=== PATIENT | female | born 1985 | race Hispanic/Latino ===

== ENCOUNTER 2019-06-11 10:58 | Outpatient (CLI) | payer MEDICAID, SELFPAY ==
[2019-06-11 11:55] LABS: Add Urine Microscopic? NO; Appearance Urine Clear (Clear); Bilirubin Urine Negative (Negative); Blood Urine Negative (Negative); Color Urine Straw (Yellow); Glucose Urine UA Negative (Negative); Ketones Urine Negative (Negative); Leukocyte Esterase Ur Negative LEU/UL (NEGATIVE); Nitrate Urine Negative (Negative); Protein Urine Negative (Negative); Specific Grav Ur 1.012 (1.001-1.035); Urobilinogen Urine Negative mg/dL (<2.0)
[2019-06-11 12:23] LABS: Thyroid Stimulating Hormone 0.196 uIU/mL (0.465-4.680)
[2019-06-11 12:29] LABS: Hepatitis B Surface Antigen Negative (Negative); Rubella IgG Antibody 28.5 IU/ML; Vitamin D 25 Hydroxy 32.9 ng/mL
[2019-06-11 12:41] LABS: HIV 1/2 Ab P24 Ag Result Negative (Negative); Hepatitis C Virus Antibody Negative (Negative)
[2019-06-11 12:50] LABS: Basophils Percent Auto 0.4 % (0.2-1.2); Eosinophils Absolute Auto 0.1 K/mm3 (0-0.3); Eosinophils Percent Auto 1.3 % (0-4.4); Hematocrit 40.6 % (37.0-47.0); Hemoglobin 14.2 g/dL (12.0-15.0); Immature Granulocyte Absolute 0.06 K/mm3 (0.00-0.031); Immature Granulocyte Percent A 0.5 % (0-0.5); Lymphocytes Absolute Auto 2.02 K/mm3 (0.9-3.2); Lymphocytes Percent Auto 18.3 % (18.3-44.2); Mean Corpuscular Volume 85.8 fl (80-100); Mean Platelet Volume 10.5 fl (7.4-10.4); Monocytes Absolute Auto 0.5 K/mm3 (0.1-0.6); Monocytes Percent Auto 4.5 % (2.6-8.5); Neutrophils Absolute Auto 8.3 K/mm3 (1.3-6.7); Platelet Count Result 300 k/mm3 (150-375); Red Blood Count 4.73 M/mm3 (4.2-5.4); Red Cell Distribution Width 12.3 % (11.5-14.5)
[2019-06-12 07:19] LABS: Rapid Plasma Reagin Non-Reactive (NonReactive)
[2019-06-16 23:14] LABS: Hematocrit 43.8 % (35.0-45.0); Hemoglobin 14.3 g/dL (11.7-15.5); MCH 30.6 pg (27.0-33.0); MCV 93.8 FL (80.0-100.0); RDW 14.8 % (11.0-15.0); Red Blood Cell Count 4.67 Mill/uL (3.80-5.10)
== END 2019-06-11 10:59 | disposition home or self-care (01) ==
LOC: ANHLAB 11:00
PROVIDERS: PCP Student in an Organized Health Care Education/Training Program; Visit Provider Student in an Organized Health Care Education/Training Program
DX: Z32.00 Encounter for pregnancy test, result unknown (principal)
CPT/HCPCS: 36415; 81003; 81220; 81243; 82306; 83021; 84443; 85025; 86592; 86703; 86762; 86787; 86803; 86900; 86901; 87086; 87340; G0432

== ENCOUNTER 2019-06-15 13:07 | Outpatient (CLI) | payer MEDICAID, SELFPAY ==
[2019-06-15 14:07] LABS: Thyroid Stimulating Hormone 0.399 uIU/mL (0.465-4.680)
[2019-06-15 14:12] LABS: Free T4 Free Thyroxine 1.18 ng/mL (0.78-2.19)
== END 2019-06-15 13:08 | disposition home or self-care (01) ==
PROVIDERS: PCP Student in an Organized Health Care Education/Training Program; Visit Provider Student in an Organized Health Care Education/Training Program
DX: Z34.81 Encounter for supervision of other normal pregnancy, first trimester (principal); R79.89 Other specified abnormal findings of blood chemistry
CPT/HCPCS: 36415; 84439; 84443; 84480; 86850; 86900; 86901

== ENCOUNTER 2019-06-16 12:57 | Outpatient (CLI) | payer MEDICAID, SELFPAY ==
--- NOTE | ~2019-06-16 | US_ITS ---
EXAMINATION: US OB <= 14 weeks fetus DATE: 06/16/2019 13:29 INDICATION: Evaluate gestational dates. TECHNIQUE: Real-time transabdominal obstetric ultrasound. FINDINGS: No prior studies for comparison. The uterus measures 13.4 x 9.5 x 9.7 cm. There is an intrauterine gestational sac, with pole id entified. The crown rump length measures 5.15 cm, which correlates with a estimated gestational age of 11 weeks 6 days. heart tones are identified measuring 171 BPM. There is a 2 cm corpus lute al cyst of the left ovary. IMPRESSION: 1. SL IUP with an EGA of 11 weeks, 6 days (EDC by current ultrasound of 12/30/2019). Reviewed, dictated and finalized at location A. IMPRESSION: 1. SL IUP with an EGA of 11 weeks, 6 days (EDC by current ultrasound of 020).
== END 2019-06-16 12:58 | disposition home or self-care (01) ==
PROVIDERS: PCP Student in an Organized Health Care Education/Training Program; Visit Provider Student in an Organized Health Care Education/Training Program
DX: Z36.89 Encounter for other specified antenatal screening (principal); Z3A.11 11 weeks gestation of pregnancy
CPT/HCPCS: 76801

== ENCOUNTER 2019-08-30 17:41 | Observation (INO) | payer OTHER, SELFPAY ==
--- NOTE | 2019-08-30 17:41 | OBADM ---
This patient, Padmaja Moya, admitted to the OB room OB Post 116 for observation. Patient/family oriented to hospital policies and general routines including ID bracelet, bed and alarms, visiting hours, pain management, procedures, bathroom and other care routines, personal items, smoking policy, room service/diet, and visiting hours. Patient/Family are encouraged to report perceived risks to care and to ask questions if they do not understand what they are told or what they should do.
[2019-08-30 18:01] VITALS: BP 133/55; PULSE 57; TEMP 36.6
[2019-08-30 18:15] VITALS: BP 125/75; PULSE 98; BMI 31.8
--- NOTE | 2019-08-30 18:18 | PC.NURSE ---
Plan of care discussed with patient. Patient states understanding with plan of care and denies questions.
[2019-08-30 18:32] LABS: Add Urine Microscopic? YES; Appearance Urine Cloudy (Clear); Bacteria Urine Trace /hpf; Bilirubin Urine Negative (Negative); Blood Urine 1+ (Negative); Color Urine Yellow (Yellow); Glucose Urine UA Negative (Negative); Ketones Urine Negative (Negative); Leukocyte Esterase Ur 1+ LEU/UL (NEGATIVE); Mucus Urine Rare /lpf; Nitrate Urine Negative (Negative); Protein Urine Negative (Negative); Specific Grav Ur 1.015 (1.001-1.035); Squamous Epithelial Cell Urine Many /hpf (Few); Urobilinogen Urine Negative mg/dL (<2.0); WBC Urine 31-50 /hpf (0-3)
--- NOTE | 2019-08-30 18:43 | PC.NURSE ---
Dr. Fajardo notified of UA results. No contractions noted via toco monitoring. FHT 155. VSS. Discharge orders received.
[2019-08-30] MEDS: NITROFURANTOIN MONOHYD MACROCR 100 MG CAP PO (18:59)
--- NOTE | 2019-08-30 19:00 | PC.NURSE ---
Patient states understanding of discharge instruction. labor precautions reviewed with patient prior to discharge. Patient left ambulating at 1900.
--- NOTE | 2019-08-30 19:03 | PC.NURSE ---
Patient discharge instructions reviewed. Patient educated on Macrobid prescription prior to discharge. 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
--- NOTE | 2019-09-24 12:20 | PM.OBTRLD ---
OB - Triage/Final Diagnosis Evaluation Laboratory results: Laboratory Tests 08/30/19 18:18 Urine Color Yellow Urine Appearance Cloudy H Urine pH 7.0 Ur Specific [place] 1.015 Urine Protein Negative Urine Glucose (UA) Negative Urine Ketones Negative Ur Blood (Man) 1+ H Urine Nitrate Negative Urine Bilirubin Negative Urine Urobilinogen Negative Ur Leukocyte Esterase 1+ H Urine RBC 3-5 H Urine WBC 31-50 H Ur Squamous Epith Cells Many H Urine Bacteria Trace Urine Mucus Rare Final Diagnosis (1) UTI (urinary tract infection) during : Code(s): O23.40 - Unspecified infection of urinary tract in , unspecified trimester Status: Acute
--- NOTE | 2019-09-28 04:06 | PM.OBTRLD ---
OB - Triage/Final Diagnosis Evaluation Laboratory results: Laboratory Tests 08/30/19 18:18 Urine Color Yellow Urine Appearance Cloudy H Urine pH 7.0 Ur Specific [place] 1.015 Urine Protein Negative Urine Glucose (UA) Negative Urine Ketones Negative Ur Blood (Man) 1+ H Urine Nitrate Negative Urine Bilirubin Negative Urine Urobilinogen Negative Ur Leukocyte Esterase 1+ H Urine RBC 3-5 H Urine WBC 31-50 H Ur Squamous Epith Cells Many H Urine Bacteria Trace Urine Mucus Rare Final Diagnosis (1) UTI (urinary tract infection) during : Code(s): O23.40 - Unspecified infection of urinary tract in , unspecified trimester Status: Acute
== END 2019-08-30 19:00 | disposition home or self-care (01) ==
PROVIDERS: Admitting Provider Student in an Organized Health Care Education/Training Program; Visit Provider Obstetrics & Gynecology
DX: O23.40 Unspecified infection of urinary tract in pregnancy, unspecified trimester (principal); Z3A.00 Weeks of gestation of pregnancy not specified
CPT/HCPCS: 81001; 87077; 87086; 87088; 87186; A9270; G0378; G0379

== ENCOUNTER 2019-09-23 10:18 | Outpatient (CLI) | payer OTHER, SELFPAY ==
[2019-09-23 11:45] LABS: Basophils Percent Auto 0.3 % (0.2-1.2); Eosinophils Absolute Auto 0.2 K/mm3 (0-0.3); Eosinophils Percent Auto 1.5 % (0-4.4); Hematocrit 35.6 % (37.0-47.0); Hemoglobin 12.3 g/dL (12.0-15.0); Immature Granulocyte Absolute 0.15 K/mm3 (0.00-0.031); Immature Granulocyte Percent A 1.3 % (0-0.5); Lymphocytes Absolute Auto 1.62 K/mm3 (0.9-3.2); Lymphocytes Percent Auto 13.9 % (18.3-44.2); Mean Corpuscular HGB Conc 34.6 g/dl (32-36); Mean Corpuscular Hemoglobin 31.5 pg (26-34); Mean Platelet Volume 9.8 fl (7.4-10.4); Monocytes Absolute Auto 0.7 K/mm3 (0.1-0.6); Monocytes Percent Auto 6.1 % (2.6-8.5); Neutrophils Absolute Auto 8.9 K/mm3 (1.3-6.7); Neutrophils Percent Auto 76.9 % (45.5-73.1); Platelet Count Result 256 k/mm3 (150-375); Red Blood Count 3.91 M/mm3 (4.2-5.4); Red Cell Distribution Width 13.4 % (11.5-14.5); White Blood Count 11.6 K/mm3 (4.5-10.0)
[2019-09-23 11:54] LABS: Glucose 1 Hour PP 50gm Dose 101 mg/dL
== END 2019-09-23 10:19 | disposition home or self-care (01) ==
PROVIDERS: Visit Provider Student in an Organized Health Care Education/Training Program
DX: Z34.82 Encounter for supervision of other normal pregnancy, second trimester (principal); Z3A.00 Weeks of gestation of pregnancy not specified
CPT/HCPCS: 36415; 82947; 85025

== ENCOUNTER 2019-11-12 11:16 | Outpatient (CLI) | payer OTHER, SELFPAY ==
[2019-11-12 11:49] LABS: Basophils Absolute Auto 0.1 K/mm3 (0.0-0.1); Basophils Percent Auto 0.5 % (0.2-1.2); Eosinophils Absolute Auto 0.2 K/mm3 (0-0.3); Eosinophils Percent Auto 1.7 % (0-4.4); Hematocrit 34.4 % (37.0-47.0); Hemoglobin 11.9 g/dL (12.0-15.0); Immature Granulocyte Absolute 0.25 K/mm3 (0.00-0.031); Immature Granulocyte Percent A 1.9 % (0-0.5); Lymphocytes Absolute Auto 1.66 K/mm3 (0.9-3.2); Lymphocytes Percent Auto 12.7 % (18.3-44.2); Mean Corpuscular HGB Conc 34.6 g/dl (32-36); Mean Corpuscular Hemoglobin 31.1 pg (26-34); Mean Corpuscular Volume 89.8 fl (80-100); Mean Platelet Volume 9.8 fl (7.4-10.4); Monocytes Absolute Auto 0.8 K/mm3 (0.1-0.6); Monocytes Percent Auto 6.4 % (2.6-8.5); Neutrophils Percent Auto 76.8 % (45.5-73.1); Platelet Count Result 266 k/mm3 (150-375); Red Blood Count 3.83 M/mm3 (4.2-5.4); Red Cell Distribution Width 12.6 % (11.5-14.5)
[2019-11-12 12:38] LABS: HIV 1/2 Ab P24 Ag Result Negative (Negative)
[2019-11-13 09:16] LABS: Rapid Plasma Reagin Non-Reactive (NonReactive)
== END 2019-11-12 11:17 | disposition home or self-care (01) ==
PROVIDERS: PCP Student in an Organized Health Care Education/Training Program; Visit Provider Student in an Organized Health Care Education/Training Program
DX: Z34.83 Encounter for supervision of other normal pregnancy, third trimester (principal); Z3A.00 Weeks of gestation of pregnancy not specified
CPT/HCPCS: 36415; 85025; 86592; 86703; G0432

== ENCOUNTER 2019-12-18 11:37 | Inpatient (IN) | payer OTHER, SELFPAY ==
[2019-12-18] VITALS (42 sets, daily range): BP systolic 107–141; BP diastolic 50–92; PULSE 49–131; RESP 16–19; TEMP 36.3–36.7; O2SAT 95–100; BMI 35.5
--- NOTE | 2019-12-18 10:07 | PM.IMHP ---
H&P: HPI History of Present Illness Date/Time: 12/18/19 10:07 Chief complaint: Prior / Desires Sterilization Narrative: Padmaja Bates is a 34 year old female currently 39 weeks gestation. Last menstrual period March 20, 2019. Estimated due date December 25, 2019. Patient is dated by her last menstrual period consistent with an ultrasound on June 16, 2019 at 11 weeks gestation. Patient presents for scheduled repeat section and permanent sterilization with a bilateral tubal ligation. The patient has a history of previous section x3. Patient reports feeling well today. She denies any vaginal bleeding, leakage of fluid, or contractions. Reports good movement. Review of Systems Review of Systems: All systems reviewed & are unremarkable except as noted in HPI and below Constitutional: Constitutional: Reports as per HPI, Reports no additional constitutional complaints, Denies chills, Denies fever(s), Denies headache(s) and Denies night sweats Eyes: Eyes: Reports as per HPI and Reports no additional eye complaints ENT: Reports system reviewed and no additional complaints, except as documented, Reports as per HPI, Reports Normal hearing present and Denies headache(s) Cardiovascular: Cardiovascular: Reports as per HPI, Reports no additional cardiovascular complaints, Denies chest pain and Denies dyspnea Respiratory: Respiratory: Reports as per HPI, Reports no additional respiratory complaints, Denies cough and Denies dyspnea Gastrointestinal: Gastrointestinal: Reports as per HPI, Reports no additional gastrointestinal complaints, Denies abdominal pain, Denies change in bowel habits, Denies change in stool character, Denies nausea and Denies vomiting Genitourinary: Genitourinary: Reports no additional female genitourinary complaints, Reports as per HPI, Denies abnormal vaginal bleeding, Denies genital lesions, Denies hot flashes, Denies dyspareunia, Denies pelvic pain, Denies sexual dysfunction, Denies urinary incontinence, Denies vaginal discharge, Denies vaginal dryness and Denies vaginal odor Musculoskeletal: Musculoskeletal: Reports no additional musculoskeletal complaints and Reports as per HPI Integumentary/Breasts: Skin/Breast: Reports system reviewed and no additional complaints, except as docu, Reports as per HPI, Denies breast pain and Denies nipple discharge Neurologic: Reports system reviewed and no additional complaints, except as documented, Reports as per HPI, Reports Normal hearing present and Denies headache(s) Psychiatric: Psychiatric: Reports no additional psychiatric complaints, Reports as per HPI, Denies anxiety and Denies depression Endocrine: Endocrine: Reports no additional endocrine complaints and Reports as per HPI Hematologic/Lymphatic: Hematologic/Lymphatic: Reports no additional hematologic/lymphatic complaints and Reports as per HPI Allergic/Immunologic: Allergic/Immunologic: Reports no additional allergic/immunologic complaints and Reports as per HPI PMFSH Past Medical History Medical History (Updated 12/18/19 @ 10:38 by Khloe Yeboah MD) Brain tumor Cutaneous endometriosis Surgical History Surgical History (Updated 12/18/19 @ 10:38 by Khloe Yeboah MD) H/O exploratory laparotomy excision of abdominal incisional endometrioma History of brain surgery Previous section x 3 Social History Social History Smoking status: Never smoker Second hand tobacco smoke exposure: No Alcohol intake: never Meds Home Medications and Allergies Home Medications Medication Instructions Recorded Confirmed Type vits 75-iron 28 mg-folic 1 pkg PO DAILY 05/14/19 08/30/19 History acid 800 mcg-omega-3 oral combo pack [id number] 1 cap PO Q8H PRN #10 cap 11/12/19 11/12/19 Rx 50 mg-300 mg-40 mg capsule Allergies Allergy/AdvReac Type Severity R
[2019-12-18] MEDS: LACTATED RINGERS 1,000 ML 125 ML IV CONT (12:49)
[2019-12-18 12:50] LABS: Basophils Absolute Auto 0.1 K/mm3 (0.0-0.1); Basophils Percent Auto 0.5 % (0.2-1.2); Eosinophils Absolute Auto 0.1 K/mm3 (0-0.3); Eosinophils Percent Auto 1.3 % (0-4.4); Hematocrit 34.7 % (37.0-47.0); Hemoglobin 12.1 g/dL (12.0-15.0); Immature Granulocyte Absolute 0.08 K/mm3 (0.00-0.031); Immature Granulocyte Percent A 0.8 % (0-0.5); Lymphocytes Absolute Auto 1.52 K/mm3 (0.9-3.2); Lymphocytes Percent Auto 15.9 % (18.3-44.2); Mean Corpuscular HGB Conc 34.9 g/dl (32-36); Mean Corpuscular Hemoglobin 30.7 pg (26-34); Mean Corpuscular Volume 88.1 fl (80-100); Mean Platelet Volume 9.5 fl (7.4-10.4); Monocytes Absolute Auto 0.5 K/mm3 (0.1-0.6); Monocytes Percent Auto 5.4 % (2.6-8.5); Neutrophils Absolute Auto 7.3 K/mm3 (1.3-6.7); Neutrophils Percent Auto 76.1 % (45.5-73.1); Platelet Count Result 271 k/mm3 (150-375); Red Blood Count 3.94 M/mm3 (4.2-5.4); Red Cell Distribution Width 12.9 % (11.5-14.5); White Blood Count 9.6 K/mm3 (4.5-10.0)
--- NOTE | 2019-12-18 13:12 | WPDHPUPDATE1 ---
History and Physical Update Update Date/Time: 12/18/19 13:12 History and Physical has been reviewed, including an updated exam of the patient. There are NO changes in the patient's condition. Risks, benefits, and alternatives have been discussed and questions answered. Patient agrees to proceed with procedure.
--- NOTE | 2019-12-18 13:24 | WPDANESEPPF ---
Anes - Initial Pre Proc Eval Procedure: Operation Date: 12/18/19 13:30 Proposed Procedures p Repeat Section, Bilateral Tubal Ligation - Khloe Yeboah MD Date/Time: 12/18/19 13:24 Surgeon: Khloe Yeboah MD Pre Op Diagnosis: C Sections Patient Data Age: 34 Gender: F Height: 5 ft 4 in Weight: 94 kg Last Vital Signs Pulse 72 12/18/19 12:31 BP 107/68 12/18/19 12:31 Allergies Allergy/AdvReac Type Severity Reaction Status Date / Time ibuprofen Allergy Unknown Swelling Verified 12/15/19 09:07 Home Medications Medication Instructions Recorded Confirmed Type vits 75-iron 28 mg-folic 1 pkg PO DAILY 05/14/19 08/30/19 History acid 800 mcg-omega-3 oral combo pack [id number] 1 cap PO Q8H PRN #10 cap 11/12/19 11/12/19 Rx 50 mg-300 mg-40 mg capsule Laboratory Tests 12/18/19 12/18/19 12:41 12:41 WBC 9.6 K/mm3 K/mm3 (4.5-10.0) RBC 3.94 M/mm3 L M/mm3 (4.2-5.4) Hgb 12.1 g/dL g/dL (12.0-15.0) Hct 34.7 % L % (37.0-47.0) MCV 88.1 fl fl (80-100) MCH 30.7 pg pg (26-34) MCHC 34.9 g/dl g/dl (32-36) RDW 12.9 % % (11.5-14.5) Plt Count 271 k/mm3 k/mm3 (150-375) MPV 9.5 fl fl (7.4-10.4) Immature Gran % (Auto) 0.8 % H % (0-0.5) Neut % (Auto) 76.1 % H % (45.5-73.1) Lymph % (Auto) 15.9 % L % (18.3-44.2) [place] % (Auto) 5.4 % % (2.6-8.5) Eos % (Auto) 1.3 % % (0-4.4) Baso % (Auto) 0.5 % % (0.2-1.2) Lymph # (Auto) 1.52 K/mm3 K/mm3 (0.9-3.2) [place] # (Auto) 0.5 K/mm3 K/mm3 (0.1-0.6) Eos # (Auto) 0.1 K/mm3 K/mm3 (0-0.3) Baso # (Auto) 0.1 K/mm3 K/mm3 (0.0-0.1) Abs Immat Gran (auto) 0.08 K/mm3 H K/mm3 (0.00-0.031) Absolute Neuts (auto) 7.3 K/mm3 H K/mm3 (1.3-6.7) Absolute Nucleated RBC 0.0 K/mm3 K/mm3 (0.0-0.012) Nucleated RBC % 0.0 % % (0.0-0.2) RPR Pending Patient hx anesthesia problems: none Family hx anesthesia problems: none PMFSH Past Medical History Medical History Brain tumor Cutaneous endometriosis Surgical History Surgical History H/O exploratory laparotomy excision of abdominal incisional endometrioma History of brain surgery Previous section x 3 Social History Social History Smoking status: Never smoker Second hand tobacco smoke exposure: No Alcohol intake: never Substance use: never Gender identity (if verbalized by the patient): Female Spiritual care concerns: No Anes - Eval Final PreProcedure Day of Procedure 12/18/19 13:24 Patient weight: obese Heart: regular rate and rhythm Lungs: clear to auscultation Airway: Mallampati scale class II Neurological: alert and oriented Last oral intake: >/= 8 hours ASA classification: III Emergent: no Anesthetic plan: proceed Anesthesia type and monitoring: regional spinal and standard monitoring Informed Consent: The patient's anesthetic plan and its attendant risks and benefits were discussed with the patient/family/POA. Questions were solicited and answers provided to the satisfaction of the patient/family/POA.
--- NOTE | 2019-12-18 14:15 | LDADM ---
This patient, Padmaja Bates, was admitted to OB Post 111 on 12/18/19 at 11:37. Plans for scheduled section, pain management and were discussed with patient. Patient/family oriented to hospital policies and general routines including ID bracelet, bed and alarms, visiting hours, pain management, procedures, bathroom and other care routines, personal items, smoking policy, room service/diet and guest tray routines, security routines, and visiting hours. Patient/Family are encouraged to report perceived risks to care and to ask questions if they do not understand what they are told or what they should do. See OBIX for further documentation.
--- NOTE | 2019-12-18 16:17 | PM.PROC ---
Procedure Note - Detailed Date of procedure: 12/18/19 Pre-op diagnosis: C Sections Intrauterine at 39 weeks gestation Previous section x 3 Multiparity, desires permanent sterilization Post-op diagnosis: same Procedure performed: Repeat low transverse section via Pfannenstiel Bilateral tubal ligation via modified Espy method Description of procedure: The patient was taken to the operating room, where she self-transferred to the operating room table. Spinal anesthesia was administered and found to be adequate. The patient was placed in dorsal supine position with a leftward tilt. She was prepped and draped in the usual sterile fashion. Spinal anesthesia was tested and found to be adequate. A Pfannenstiel skin incision was made with a scalpel and carried through to the underlying layer of fascia with the Bovie. The fascia was incised in the midline and the incision was extended laterally with the use of forceps and Epterson scissors. The inferior aspect of the fascial incision was grasped with Lynsey clamps, elevated, and the underlying rectus muscle were dissected off with Peterson scissors. Attention was then turned to the superior aspect of the fascial incision, which in a similar manner, was grasped with Lynsey clamps, elevated, and the underlying rectus muscles were also dissected off with Peterson scissors. The rectus muscles were in the midline and the peritoneal cavity was entered bluntly. This incision was extended superiorly and inferiorly with good visualization of the bladder and care was taken to avoid blood vessels. A bladder blade was inserted. The vesicouterine peritoneum was identified and incised sharply with Metzenbaum scissors. This incision was extended laterally with Metzenbaum scissors and a bladder flap was created digitally. The bladder blade was replaced. The lower uterine segment was noted to be thin. Two Allis clamps were used to elevate the lower uterine segment. A low-transverse uterine incision was made with a scalpel. This incision was extended laterally with bandage scissors. Amniotomy was performed. Clear amniotic fluid was noted. The infant's head was grasped and gently guided to the level of the uterine incision. The 's head was delivered easily and atraumatically without difficulty followed by the neck, shoulders, and rest of body with gentle fundal pressure. The 's nose and mouth were suctioned bulb suction. The was crying spontaneously. The cord was clamped and cut and the infant was handed off to awaiting nursing staff. A segment of cord was collected for cord gases. Cord blood was also collected. The placenta was then delivered manually with gentle uterine massage. Uterus was exteriorized and cleared of all clots and debris. The uterine incision was reapproximated with 0 Vicryl in a running, locked fashion. A second imbricating layer using 0 Monocryl performed. A serosal abrasion near the right angle was noted to be oozing. Two figure of eight sutures using 0 Monocryl was used to obtain hemostasis. Excellent hemostasis was noted. On inspection, the uterus, ovaries, and fallopian tubes appeared to be normal bilaterally. Attention was then turned to the right fallopian tube, which was identified and followed through to the fimbriated end. The tube was grasped with a [place] clamp and elevated. With the use of Bovie, a window was created in the mesosalpinx just beneath the tube. Four free ties using 2-0 plain suture were used to create an intervening segment of tube. Two sutures were placed on either side of the intervening segment. An approximate 3cm segment of intervening tube was then excised with Metzenbaum scissors. The excised portion of the tube was handed off the field to be sent to pathology for analysis. The tubal stumps were cauterized and excellent hemostasis was noted. In a similar manner, attention was turned to the left fallopian tube, which was identified and followed through to the fimbr
[2019-12-18] MEDS: OXYTOCIN 30 UNITS/NS 500 ML 30 UNITS/500 ML BAG 125 UNITS IV CONT (16:23)
[2019-12-18] MEDS: MORPHINE SULFATE (*CRX) 2 MG/ML INJ 3 MG IV PUSH (16:36)
[2019-12-18] MEDS: ONDANSETRON INJ 4 MG/2 ML VIAL IV PUSH ×2 (16:39→17:56)
--- NOTE | 2019-12-18 16:49 | SUR.PHASEI ---
1645-Lights dimmed and pt dozing off and on with her and at her bedside.
--- NOTE | 2019-12-18 18:56 | PC.NURSE ---
Pt vomited while preparing to transport to second floor OB. Dr. Menchaca notified. Jimmy ordered.
[2019-12-18] MEDS: diphenhydrAMINE HCl INJ 50 MG/ML VIAL 12.5 MG IV PUSH (19:06)
--- NOTE | 2019-12-18 19:15 | PC.NURSE ---
Patient transferred to post room #285 via stretcher. Support person present. Oriented to unit, room, information board, rooming in, admission packet and security measures. Patient verbalizes understanding.
[2019-12-18] MEDS: KCL 20 MEQ/D5/0.45% SOD CHL 1,000 ML 125 ML IV CONT (21:18)
[2019-12-18] MEDS: HYDROcodone/acetaminophen (*CRX) 5-325 MG TABLET 1 TAB PO (23:08)
[2019-12-19] MEDS: HYDROcodone/acetaminophen (*CRX) 10-325 MG TABLET 1 TAB PO ×6 (02:59→23:12)
[2019-12-19 03:00] VITALS: BP 125/76; PULSE 98; RESP 16; TEMP 36.3; O2SAT 96
[2019-12-19 04:56] LABS: Basophils Percent Auto 0.2 % (0.2-1.2); Eosinophils Absolute Auto 0.1 K/mm3 (0-0.3); Eosinophils Percent Auto 0.5 % (0-4.4); Hematocrit 36.1 % (37.0-47.0); Hemoglobin 12.2 g/dL (12.0-15.0); Immature Granulocyte Absolute 0.06 K/mm3 (0.00-0.031); Immature Granulocyte Percent A 0.5 % (0-0.5); Lymphocytes Absolute Auto 1.43 K/mm3 (0.9-3.2); Lymphocytes Percent Auto 11.5 % (18.3-44.2); Mean Corpuscular HGB Conc 33.8 g/dl (32-36); Mean Corpuscular Hemoglobin 30.5 pg (26-34); Mean Corpuscular Volume 90.3 fl (80-100); Mean Platelet Volume 9.9 fl (7.4-10.4); Monocytes Absolute Auto 0.9 K/mm3 (0.1-0.6); Monocytes Percent Auto 7.1 % (2.6-8.5); Neutrophils Percent Auto 80.2 % (45.5-73.1); Platelet Count Result 271 k/mm3 (150-375); Red Cell Distribution Width 12.9 % (11.5-14.5); White Blood Count 12.4 K/mm3 (4.5-10.0)
[2019-12-19] MEDS: MULTIVIT/MIN/PREN/FOL AC/IRON TABLET 1 TAB PO (08:24)
[2019-12-19 08:25] VITALS: BP 115/65; PULSE 96; RESP 18; TEMP 36.9
[2019-12-19] MEDS: DOCUSATE SODIUM 100 MG CAPSULE PO ×2 (08:25→16:50)
--- NOTE | 2019-12-19 11:34 | P.PNOB_ITS ---
OB - PN: Subj Subjective Date/time seen: 12/19/19 11:34 Patient comments: no complaints, pain well controlled, incisional pain, tolerating diet, flatus present and other (Lochia similar to menses) baby status: doing well OB - PN: Obj Data Labs CBC & Chem 7: 12/19/19 03:15 Labs: Laboratory Results - last 24 hr 12/18/19 12/18/19 12/19/19 12:41 12:41 03:15 WBC 9.6 12.4 H RBC 3.94 L 4.00 L Hgb 12.1 12.2 Hct 34.7 L 36.1 L MCV 88.1 90.3 MCH 30.7 30.5 MCHC 34.9 33.8 RDW 12.9 12.9 Plt Count 271 271 MPV 9.5 9.9 Immature Gran % (Auto) 0.8 H 0.5 Neut % (Auto) 76.1 H 80.2 H Lymph % (Auto) 15.9 L 11.5 L [place] % (Auto) 5.4 7.1 Eos % (Auto) 1.3 0.5 Baso % (Auto) 0.5 0.2 Lymph # (Auto) 1.52 1.43 [place] # (Auto) 0.5 0.9 H Eos # (Auto) 0.1 0.1 Baso # (Auto) 0.1 0.0 Abs Immat Gran (auto) 0.08 H 0.06 H Absolute Neuts (auto) 7.3 H 10.0 H Absolute Nucleated RBC 0.0 0.0 Nucleated RBC % 0.0 0.0 Blood Type O Positive Antibody Screen Negative OB - PN A/P Plan day: 1 (s/p C section, doing well) Plan: routine care Time Spent With Patient Time: Total time spent is greater than 50% in coordination of care (as documented) at patient's floor/unit and/or counseling patient: Exam Const: General: no acute distress Resp: Auscultation: clear to auscultation bilaterally Cardio: Rate: regular rate Rhythm: regular rhythm GI: Inspection: non-distended, incision (Intact without erythema, drainage, or induration) and other (Fundus firm and nontender at umbilicus) GI Palp: Yes abdominal tenderness (appropriate ) and Yes Soft to palpation Extrem: General: no edema
[2019-12-19 13:30] VITALS: BP 125/75; PULSE 81; RESP 18
--- NOTE | 2019-12-19 13:50 | WPDANLDPN2 ---
Anes-Prog Note L&D Date/Time: 12/19/19 13:50 Comfortable throughout: section Neuraxial method: spinal Epidural/Spinal procedure site: clean & non-tender Neuro status: Neuro function grossly intact. Cardiovascular status: normal Respiratory status: normal Airway patency: baseline Mental status: baseline Post-Op hydration status: normal Vital Signs: Last Vital Signs Temp 36.9 C 12/19/19 08:25 Pulse 96 12/19/19 08:25 Resp 18 12/19/19 08:25 BP 115/65 12/19/19 08:25 Pulse Ox 96 12/19/19 03:00 Pain score (VAS): 210 I/O: Intake & Output 12/18/19 12/19/19 12/19/19 23:59 07:59 15:59 Intake Total 1500 1600 1000 Output Total 683 1250 1400 Balance 817 350 -400 Post-procedural complaints: none Patient feedback: Patient satisfied with anesthetic care.
--- NOTE | 2019-12-19 13:51 | WPDANLDNPN2 ---
Anes-Prog Note L&D-Neuraxial Date/Time: 12/19/19 13:51 Neuraxial medications: intrathecal PF morphine Opiod-related complaints: none Patient feedback: Patient satisfied with post-operative pain management.
[2019-12-19 19:10] VITALS: BP 114/66; PULSE 88; RESP 16; TEMP 37.1; O2SAT 98
--- NOTE | 2019-12-19 19:10 | PC.NURSE ---
Patient viewed the discharge video Mother & Baby Care, The First Two Weeks . Patient was given the opportunity and encouraged to ask questions. Patient verbalized understanding of information shared and has been given the mother/baby guide for home reference.
[2019-12-20] MEDS: HYDROcodone/acetaminophen (*CRX) 10-325 MG TABLET 1 TAB PO ×2 (02:42→08:17)
[2019-12-20 08:15] VITALS: BP 112/67; PULSE 73; RESP 18; TEMP 36.6
[2019-12-20] MEDS: MULTIVIT/MIN/PREN/FOL AC/IRON TABLET 1 TAB PO (08:17)
[2019-12-20] MEDS: DOCUSATE SODIUM 100 MG CAPSULE PO (08:17)
[2019-12-20] MEDS: TETANUS,DIPHTHERIA,AC PERTUSSIS ADULT (0.5 ML) BOOSTRIX IM (08:18)
--- NOTE | 2019-12-20 08:21 | PM.OBPNVD ---
OB - PN: Subj Subjective Date/time seen: 12/20/19 08:21 Patient comments: no complaints, pain well controlled, tolerating diet, flatus present and other (Ambulating and voiding without problems. Lochia similar to menses) baby status: doing well OB - PN: Obj Data Labs CBC & Chem 7: 12/19/19 03:15 OB - PN A/P Plan day: 2 (s/p C section, doing well) Plan: routine care and discharge home (Follow up in 2 weeks) Time Spent With Patient Time: Total time spent is greater than 50% in coordination of care (as documented) at patient's floor/unit and/or counseling patient: Time with patient: less than 15 minutes Exam Const: General: no acute distress Resp: Auscultation: clear to auscultation bilaterally Cardio: Rate: regular rate Rhythm: regular rhythm GI: Inspection: non-distended, incision (Intact without erythema, drainage, or induration) and other (Fundus firm and nontender below umbilicus) GI Palp: Yes abdominal tenderness (appropriate) and Yes Soft to palpation Extrem: General: no edema
[2019-12-21 10:22] VITALS: BP 135/81; PULSE 64; RESP 20; TEMP 36.9; O2SAT 100
[2019-12-21 12:33] LABS: Rapid Plasma Reagin Non-Reactive (NonReactive)
--- NOTE | 2020-01-22 11:56 | PM.OBDSVD ---
DS: Admitting Diagnosis Admitting Diagnosis Admitting Diagnosis: C Sections DS: Discharge Diagnosis Discharge Diagnosis (1) Previous section: Code(s): Z98.891 - History of uterine scar from previous surgery Status: Acute OB - DS: Summary OB Procedures : None OB Procedures Intrapartum: and Tubal ligation OB Procedures: : None Peripartum Data Delivery Method: Section Procedures: Procedures Operation Date: 12/18/19 13:30 Actual Procedures Side Surgeon p Repeat Section, Bilateral Tubal Ligation Khloe Yeboah MD complications: none Status at Discharge Functional status at discharge: independent ambulation Overall status at discharge: patient is progressing back to baseline Time Spent with Patient Time attestation: Total time spent providing and/or coordinating discharge services: Time spent: Less than 30 minutes DS: Data Data Completed and Pending Completed studies during hospitalization: Pending at discharge 12/18/19 15:31 Surgical [PTH] Routine Discharge Plan Discharge Attending physician on discharge: Khloe Yeboah Consulting providers: David Rossi Discharging Clinician: Ayaka Spear Patient Disposition: Home, Self-Care Activity: may shower and pelvic rest Diet: regular Wound Care Instructions: incision open to air Discharge Instructions: Education: Mom and Baby Guide and Preeclampsia Handout Given to: Mother Follow-Up: Call your delivering provider's office for an appointment to be seen in: 2 Weeks [facility]. Appointment Date/Time: December 21, 2019 at 10:00 am What to expect at your follow-up visit: Physical Assessment Call [phone] if you are unable to keep your appointment time. BREAST CARE: * Wear a snug supportive bra. * For engorgement discomfort: Breast Feeding: * Apply warm moist washcloths * Express milk as needed to relieve engorgement * Wear loose clothing Bottle Feeding: * May apply ice packs * For sore nipples: * Identify correct latch-on * Apply warm moist washcloths before and after nursing * Air dry nipples after nursing * May apply Lansinoh cream to nipples ABDOMINAL INCISION: (if applicable) * Allow incision to air dry * Do NOT use lotions for powders on your incision * When showering, allow soap and water to run over the incision, but do not wash incision EPISIOTOMY/PERINEAL CARE: * Until bleeding stops, use your cheri bottle after urinating * Change your pad frequently throughout the day * No tub baths until seen by your physician - You may shower ACTIVITY: * Rest as much as possible. * Do not exercise or lift anything heavier than your baby (such as laundry or other children.) * Avoid stairs or driving as much as possible. * Do not put anything into the vagina. No douching, tampons, or sexual activity until seen by physician. NOTIFY PHYSICIAN IF YOU HAVE ANY QUESTIONS OR IF ANY OF THE FOLLOWING SYMPTOMS OCCUR: * If your incision becomes red, swollen, or more painful than what you have experienced in the hospital. * If your vaginal bleeding becomes foul smelling. * If your vaginal bleeding becomes more heavy than a period or if your bleeding changes from pink to bright red. However, you may pass an occasional walnut-sized clot once or twice for the first week . * If you experience a sharp, shooting pain in you calves. * If you discover a hard, reddened area on your breast or if you experience flu-like symptoms. DIET: * Eat regular, well-balanced meals. * Drink plenty of fluids daily. If , drink to thirst. Stand Alone Forms: General Discharge Information Follow-up/Referrals: Khloe Yeboah MD [Physician] - 2 Weeks Discharg
== END 2019-12-20 13:43 | disposition home or self-care (01) | DRG 540 ==
LOC: ANHOB2 12-20 10:12 → ANHOBPP 12-23 06:29
PROVIDERS: Admitting Provider Student in an Organized Health Care Education/Training Program; Visit Provider Obstetrics & Gynecology
PROC: 10D00Z1 Extraction of Products of Conception, Low, Open Approach (ICD-10-PCS; CPT 59514; principal; 2019-12-18 13:30)
DX: O34.211 Maternal care for low transverse scar from previous cesarean delivery (principal); Z37.0 Single live birth; Z3A.39 39 weeks gestation of pregnancy; Z23 Encounter for immunization; O99.214 Obesity complicating childbirth; E66.9 Obesity, unspecified; Z30.2 Encounter for sterilization; N80.8 Other endometriosis; O99.892 Other specified diseases and conditions complicating childbirth
CPT/HCPCS: 36415; 85025; 86592; 86850; 86900; 86901; 88302; 90471; 90653; 90715; A9270; G0008; J0131; J1200; J2270; J2274; J2405; J2590; J3480; J7120

== ENCOUNTER 2022-06-28 00:25 | Day surgery (SDC) | payer OTHER, SELFPAY ==
[2022-06-20 16:36] VITALS: BMI 25.0
--- NOTE | 2022-06-20 16:54 | PC.NURSE ---
Report to the Outpatient Waiting Room, entrance under the green pavilion located off [facility], at 0600 on 06-28-22. Planned Procedure Time: 0730. Time changes happen often and if your time is changed the preop area will call you the afternoon before. - You and your visitor will be asked to self-screen and do not enter if you have any COVID symptoms. - A mask is optional within the hospital at this time. Patients may have clear liquids (water, carbonated beverages, clear teas, apple juice) until 3 hours prior to surgery with a maximum of 20 ounces. 0430 - No food from midnight until time of surgery - Infants may have breast milk until 4 hours before surgery, formula 6 hours prior to surgery. - Children will be allowed to drink immediately following surgery. If applicable, please bring a bottle or sippy cup to assist with drinking. Juice, water, soda, and popsicles are readily available. For infants on formula, please bring formula the day of surgery. Pacifiers are allowed. Take the following medications with a SIP of water the morning of surgery: None DO NOT STOP ANY OF YOUR OTHER PRESCRIPTION MEDICATIONS PRIOR TO SURGERY ?EXCEPT THE FOLLOWING Medications to discontinue per physician: N/A Please no make-up, nail armenian, hairspray, perfume, deodorant, or body powder the day of surgery. No jewelry (including any body piercings) or valuables the day of surgery, leave them at home. Please take a shower or bath the night before, or the morning of, surgery with an antibacterial soap. Wear comfortable, loose fitting clothing. Children are encouraged to wear pajamas. - Jewelry must be removed prior to entering the operating room. Rings and piercings that are not removed may be cut off. - The hospital will not accept responsibility for valuables. - Please leave all valuables, including medications, at home the day of surgery. If you are going home after surgery, a licensed motorcycle delivery driver must drive you home. - NO public transportation without another adult if you receive anesthesia. - We recommend that an adult stay with you for 24 hours following discharge. - We also recommend that you do not drive, make important decision, drink alcoholic beverages, or take any drugs that were not prescribed by your health care provider for at least 24 hours after your discharge time. For Pediatric surgeries, we recommend two adults accompany the child home. Follow any additional instructions given to you from your surgeon. If you or anyone in your household have experienced Covid symptoms in the past week, please notify your surgeon or the nurse liaison at the phone number below for possible testing. Telephone instructions given to Padmaja Bates and asked if any additional questions and then verbalized understanding. Patient advised to call surgeon office or pre surgery nurse liaison [phone] if any additional questions.
[2022-06-28] VITALS (12 sets, daily range): BP systolic 100–124; BP diastolic 63–86; PULSE 58–82; RESP 12–16; TEMP 36.2–36.6; O2SAT 95–100; BMI 23.5
[2022-06-28] MEDS: LACTATED RINGERS 1,000 ML 30 ML IV CONT ×2 (06:30→09:37)
[2022-06-28 06:45] LABS: Urine Cotinine NEGATIVE
--- NOTE | 2022-06-28 07:07 | WPDANESEPPF ---
Anes - Initial Pre Proc Eval Procedure: Operation Date: 06/28/22 07:30 Proposed Procedures p Bilateral Breast Augmentation, - Javier Weston MD s Bilateral Breast Mastopexy - Javier Weston MD Date/Time: 06/28/22 07:07 Surgeon: Javier Weston MD Pre Op Diagnosis: micromastia, breast ptosis Patient Data Age: 37 Gender: F Height: 1.65 m Weight: 64.1 kg Last Vital Signs Temp 97.9 F 06/28/22 05:53 Pulse 64 06/28/22 05:53 Resp 16 06/28/22 05:53 BP 123/76 06/28/22 05:53 Pulse Ox 100 06/28/22 05:53 O2 Del Method Room Air 06/28/22 05:53 Allergies Allergy/AdvReac Type Severity Reaction Status Date / Time ibuprofen Allergy Unknown Swelling Verified 06/28/22 06:44 Home Medications Medication Instructions Recorded Confirmed Type No Home Medications 06/20/22 06/28/22 History Laboratory Tests 06/28/22 06:13 Cotinine Negative Patient hx anesthesia problems: none Family hx anesthesia problems: none Results Review: All pre-operative results and documents have been reviewed as part of the pre-operative evaluation. [facility] Past Medical History Medical History Brain tumor Cutaneous endometriosis Surgical History Surgical History H/O exploratory laparotomy excision of abdominal incisional endometrioma History of bilateral tubal ligation History of brain surgery Previous section x 3 Social History Social History Smoking status: Never smoker Second hand tobacco smoke exposure: No Alcohol intake: current Alcohol use details: socially Substance use: never Substance use type: does not use Living arrangements: with family Gender identity (if verbalized by the patient): Female Spiritual care concerns: No Anes - Eval Final PreProcedure Day of Procedure 06/28/22 07:07 Patient weight: normal Heart: regular rate and rhythm Lungs: clear to auscultation Airway: Mallampati scale class II Neurological: alert and oriented Last oral intake: >/= 8 hours ASA classification: II Emergent: no Anesthetic plan: proceed Anesthesia type and monitoring: general LMA and standard monitoring Results Review: All pre-operative results and documents have been reviewed as part of the pre-operative evaluation. Informed Consent: The patient's anesthetic plan and its attendant risks and benefits were discussed with the patient/family/POA. Questions were solicited and answers provided to the satisfaction of the patient/family/POA.
--- NOTE | 2022-06-28 07:19 | WPDHPUPDATE1 ---
History and Physical Update Update Date/Time: 06/28/22 07:19 History and Physical has been reviewed, including an updated exam of the patient. There are NO changes in the patient's condition. Risks, benefits, and alternatives have been discussed and questions answered. Patient agrees to proceed with procedure.
--- NOTE | 2022-06-28 07:19 | W.PM.PROC2 ---
Procedure Note - Detailed Date of Procedure 06/28/22 Pre-op Diagnosis micromastia, breast ptosis Post-op Diagnosis Same Procedure Performed Bilateral augmentation mastopexy Surgeon Javier Weston MD Anesthesia General Findings Bilateral inverted T mastopexy Superior pedicle Bilateral Moira Leung SoftTouch 445cc Right - REF# [id number] SN [id number] Left - REF# [id number] SN [id number] Description of Procedure She is here today for bilateral breast augmentation mastopexy. Previously and again today the risks, benefits, alternatives were discussed in extensive detail. I wanted her to be very realistic about the risks involved as well as expectations. We discussed aftercare and what to monitor for. Made sure answered all of her questions to her satisfaction today and consent was obtained. Marked in the preoperative holding area with their verification. The patient was taken to the operating room placed supine on the operating table. Anesthesia was provided by anesthesiology. A surgical time-out was taken. We cleansed the skin and 1% lidocaine and 0.25% Marcaine with epinephrine was used anesthetize as a field block. She was prepped and draped in a standard sterile fashion. Tegaderm nipple Bueno were placed. A 15 blade used to make an incision just superior to the inframammary fold leaving a cusp of de-epithelized tissue at the t junction. Dissection was continued until the chest wall as identified. I incised the pectoralis major along its inferior border and completely released the inferior border leaving the medial border intact. I created a subpectoral pocket in the appropriate dimensions based on our preoperative planning for the implant. I then copiously irrigated with saline solution and verified a strict hemostasis. Next the use a triple antibiotic and Betadine containing solution to irrigate the pocket. I washed my gloves with the triple antibiotic and Betadine solution. We washed the implant immediately upon opening it with this solution and only opened it when we needed it. I used implant funnel and no-touch technique. The implant was introduced into the pocket using the funnel. Having verified positioning of the implant this was closed using 2-0 PDS. I tailor tacked the breast into position. Placed her in a sitting position. Verified the nipple-areolar location based on preoperative planning as well as intraoperative observations and measurements in full agreement. She was placed supine. I de-epithelialized the pedicle. I then removed the inferior central portion of the breast need making sure the implant was well protected. I elevated medial and lateral tissue flaps as well for planned closure. I closed along the IMF with 2-0 Stratafix. Along the vertical with 2-0 PDS. I closed around the areola with 3-0 strata fix. 3-0 Monocryl along the vertical. 3-0 Stratafix along the IMF. I finally closed everything with running subcuticular 4-0 Monocryl and tissue glue. Fluffs and surgical bra were placed. Estimated Blood Loss 50 Drains No Packing No Pathology None sent Complications No immediate complications Condition Stable Disposition PACU
[2022-06-28] MEDS: ceFAZolin 2 GM/D5W 50 ML 2 GM/50 ML BAG IVPB (07:28)
[2022-06-28] MEDS: LIDO 1%/EPINEPHRINE 1:100,000 20 ML VIAL 30 ML INFILTRATE (07:39)
[2022-06-28] MEDS: TRANEXAMIC ACID 1,000MG/ISO100 1,000 MG/100 ML BAG 200 MG IVPB (07:39)
[2022-06-28] MEDS: NACL 0.9% IRRIG POUR BOTTLE 900 ML, GENTAMICIN SULFATE INJ 160 MG, ceFAZolin 2 GM, POVI... IRRIGATION (07:53)
--- NOTE | 2022-06-28 08:27 | SUR.OPER ---
bilateral breast implants [facility] softtouch breast implants 445cc bilateral/right exp 2026-08-18 sn [id number], left exp 2026-08-26, sn [id number].
[2022-06-28] MEDS: fentaNYL CITRATE INJ (*CRX) 100 MCG/2 ML VIAL 25 MCG IV PUSH ×5 (10:03→12:12)
[2022-06-28] MEDS: oxyCODONE HCL (*CRX) 5 MG TAB IR PO (11:25)
[2022-06-28] MEDS: ONDANSETRON INJ 4 MG/2 ML VIAL IV PUSH (12:50)
== END 2022-06-28 13:03 | disposition home or self-care (01) ==
PROVIDERS: Visit Provider Surgery Plastic and Reconstructive Surgery
PROC: (CPT 19325; principal; 2022-06-28 07:30)
PROC: (CPT 19316; 2022-06-28 07:30)
DX: N64.82 Hypoplasia of breast (principal); N64.81 Ptosis of breast
CPT/HCPCS: 19325; 80307; A9270; J0171; J0690; J1100; J1170; J1580; J2250; J2405; J2704; J2710; J3010; J7120

== ENCOUNTER 2022-08-02 13:41 | Emergency (ER) | payer OTHER, SELFPAY ==
[2022-08-02 13:50] VITALS: BP 117/71; PULSE 108; RESP 18; TEMP 37.9; O2SAT 98
--- NOTE | 2022-08-02 16:29 | ED.GENADULT ---
HPI - General Adult General Chief complaint: Allergic Reaction Stated complaint: allergic reaction Time Seen by Provider: 08/02/22 15:59 History of Present Illness HPI narrative: Patient is a 37-year-old female who presents ER with concerns for rash. Over the last 4 days patient has developed redness to her cheeks bilaterally. She has then developed edema to her upper lip as well as the lower lids of her eyes. She also has some redness going across her forehead. Is tender, is not draining, is not pruritic. Patient with elevated temperature here. Denies any new face washes or peels. No no new make-ups or other perfumes. Related Data Allergies Allergy/AdvReac Type Severity Reaction Status Date / Time ibuprofen Allergy Unknown Swelling Verified 07/03/22 10:02 Review of Systems Review of Systems: All systems reviewed & are unremarkable except as noted in HPI and below Constitutional: Constitutional: Denies chills, Denies fatigue and Denies fever(s) ENT: Denies nasal congestion and Denies sore throat Integumentary/Breasts: Skin/Breast: Denies pruritus, Reports erythema, Reports rash and Denies skin ulcer Allergic/Immunologic: Allergic/Immunologic: Reports lip swelling, Denies throat swelling and Denies tongue swelling PMFSH Past Medical History Medical History Brain tumor Cutaneous endometriosis Surgical History Surgical History H/O exploratory laparotomy excision of abdominal incisional endometrioma History of bilateral tubal ligation History of brain surgery Previous section x 3 Social History Social History Smoking status: Never smoker Second hand tobacco smoke exposure: No Alcohol intake: current Alcohol use details: socially Substance use: never Substance use type: does not use Lack of Transportation: No Lack of Food: Never True Current Housing: I Have Housing Concerned About Future Housing: No Difficulty Paying Gas/Electric Bills: No Difficulty Paying for Meds: No Currently Unemployed: No Education: Don't Know Difficulty w/ Childcare or Family Care: No Living arrangements: with family Gender identity (if verbalized by the patient): Female Spiritual care concerns: No Exam Narrative: GENERAL: Nontoxic-appearing, well-nourished, and in no acute distress. HEAD: Normocephalic, atraumatic. ENT: Mucous membranes moist. Scant edema of the upper lip and lower lids bilaterally. Normal tongue and posterior oropharynx. NECK: Supple. CHEST: Clear to auscultation. No respiratory distress. HEART: Regular rate and rhythm. Normal peripheral pulses. EXTREMITIES: Normal range of motion. No edema. SKIN: Warm, dry. Rash to the forehead and cheeks of the face that is erythematous and tender with firm nodularity. May have a follicular infection or facial cellulitis. There is 1 pustule on the right cheek. NEURO: Alert and oriented x3. PSYCH: Normal mood and affect. Course Course Emergency Course: Patient with cellulitis of the face. Pustule of the right cheek poked with a needle but no return of discharge. Discussed treatment with oral and topical antibiotics. Patient verbalized understanding. Vital Signs Vital signs: Vital Signs Temperature 100.3 F H 08/02/22 13:50 Pulse Rate 108 H 08/02/22 13:50 Respiratory Rate 18 08/02/22 13:50 Blood Pressure 117/71 08/02/22 13:50 Pulse Oximetry 98 08/02/22 13:50 Oxygen Delivery Room Air 08/02/22 13:50 Temperature 100.3 F H 08/02/22 13:50 Pulse Rate 100 08/02/22 16:44 Respiratory Rate 19 08/02/22 16:44 Blood Pressure 105/78 08/02/22 16:44 Pulse Oximetry 99 08/02/22 16:44 Oxygen Delivery Room Air 08/02/22 13:50 Medical Decision Making Vital Signs Vital Signs: Vital Signs Temperature 100.3 F H 08/02
[2022-08-02 16:44] VITALS: BP 105/78; PULSE 100; RESP 19; O2SAT 99
== END 2022-08-02 16:46 | disposition home or self-care (01) ==
PROVIDERS: Emergency Provider Emergency Medicine
DX: L03.211 Cellulitis of face (principal)
CPT/HCPCS: 99283